=== PATIENT | male | born 1975 | race Caucasian/White ===

== ENCOUNTER 2021-07-31 10:13 | Emergency (ER) | payer SELFPAY ==
[~2021-07-31] VITALS: Ht 170.1 cm; Wt 68.0 kg
[2021-07-31] MEDS ORDERED: MEDROL DOSEPAK4 MG PO (12:59)
[2021-07-31] MEDS ORDERED: CYCLOBENZAPRINE5 M3 PO (12:59)
== END 2021-07-31 11:30 | disposition home or self-care (01) ==
LOC: ED 10:13
DX: M54.12 Radiculopathy, cervical region (principal)

== ENCOUNTER 2022-03-28 19:20 | Emergency (ER) | payer SELFPAY ==
[~2022-03-28] VITALS: Ht 170.1 cm; Wt 68.0 kg
[~2022-03-28 19:20] MED LIST: CYCLOBENZAPRINE5 M3 PO; MEDROL DOSEPAK4 MG PO
== END 2022-03-28 19:42 | disposition left against medical advice (07) ==
LOC: ED 19:20
DX: T48.1X1A Poisoning by skeletal muscle relaxants [neuromuscular blocking agents], accidental (unintentional), initial encounter (principal); Y92.89 Other specified places as the place of occurrence of the external cause